=== PATIENT | female | born 1960 | race African-American/Black ===

== ENCOUNTER 2016-06-03 15:31 | Emergency (ER) | payer OTHER ==
[~2016-06-03 15:31] MED LIST: ALLOPURINOL300 MG PO; ATENOLOL25 MG PO; CITALOPRAM HYDR20 MG PO; COLCRYS0.6 MG PO; IRON325 MG PO; LASIX40 MG PO; NEURONTIN100 MG PO; NEURONTIN300 MG PO; PERCOCET1 TA1 PO; TRAMADOL HCL50 MG PO; VITAMIN C TR500 M1 PO; VITAMIN D-31000 UNIT PO; XANAX0.5 MG PO
--- NOTE | 2016-06-03 16:43 | DIAGNOSTIC IMAGING REPORT ---
PROCEDURE: XR CHEST 2 VIEW INDICATION: SHORTNESS OF BREATH, initial encounter TECHNIQUE: PA and lateral view. COMPARISON: Chest x-ray 10/22/2015 FINDINGS: Borderline cardiomegaly with pulmonary vascular congestion and increased interstitial markings suggestive of CHF. Mild left basilar atelectasis. Bones are unremarkable. . IMPRESSION: 1. Findings suggestive of mild CHF 2. Mild left basilar atelectasis
--- NOTE | 2016-06-03 17:03 | ED CLINICAL REPORT ---
Clinical Report - Physicians/Mid Levels [facility] [address] [place] [address] 06/03/2016 15:31 Patient: CAROLINA HAWKINS Time Seen: 1600; initial patient contact, initial documentation, patient care assumed. Arrived- By private vehicle. Historian- patient and furniture stainer. HISTORY OF PRESENT ILLNESS Chief Complaint: BLOOD PRESSURE ELEVATED. PRESCRIPTION REFILL REQUEST. This started years ago and is still present. (pt c/o B low back spasms and pain, states she has had back issues for years, but the spasms are new, denies any new injury/trauma, c/o bp running high, c/o needed refill of inhaler). Similar symptoms previously: Chronically, as bad. Recent medical care: The patient was seen recently in a clinic. ( pt says she has many things wrong with her and went to clinic because she needs new pcp, but when clinic checked her bp and saw it was that high, they referred her to ER). REVIEW OF SYSTEMS No fever, cough, chest pain, abdominal pain or vomiting. No diarrhea or difficulty with urination. She has had mild difficulty breathing . The patient has also had wheezing and back pain. All systems otherwise negative, except as recorded above. PAST HISTORY See nurses notes. PROBLEMS: Abdominal Pain. Weakness. Congestive Heart Failure. Dyspnea. Anemia. HTN. Panic disorder. TB treated. DVT. Pneumonia. --15:45 Oniel Vicente, R.N. ADDITIONAL SURGERIES: Carpal Tunnel Surgery. . Hysterectomy. --15:45 Oniel Vicente, R.N. SOCIAL HISTORY Light tobacco smoker. Occasional alcohol use. History of occasional drug use: marijuana. No recent travel. Is a local resident. FAMILY HISTORY Negative. ADDITIONAL NOTES The nursing notes have been reviewed with agreement regarding the chief complaint, HPI, ROS, PMH and patient medications and allergies. PHYSICAL EXAM Vital Signs: 06/03/2016 15:42 BP: 188/79. HR: 70. RR: 20. O2 saturation: 100%. Temp: 97.5 F. Have been reviewed as abnormal and appear to be correct. Hypertensive. Heart rate normal. Respiratory rate normal. Temperature normal. Oxygen saturation normal. Appearance: Alert. No acute distress. Eyes: Pupils equal, round and reactive to light. Eyes normal inspection. Neck: Normal inspection. Neck supple. CVS: Normal heart rate and rhythm. Heart sounds normal. Pulses normal. Respiratory: No respiratory distress. Breath sounds normal. Chest nontender. Abdomen: No visible injury. Soft and nontender. Back: Normal inspection. Skin: Skin warm and dry. Normal skin color. No rash. Normal skin turgor. Extremities: Extremities exhibit normal ROM. No lower extremity edema. Neuro: Oriented X 3. No motor deficit. No sensory deficit. LABS, X-RAYS, AND EKG Chest X-ray: Normal Chest X-Ray. (IMPRESSION: 1. Findings suggestive of mild CHF 2. Mild left basilar atelectasis Electronically Final signed by:Dave Grajeda MD 06/03/2016 4:42:39 PM). The X-rays were interpreted by the radiologist and contemporaneously by me. PROGRESS AND PROCEDURES Course of Care: 16:07 06/03/16. pt has tony for recommendations to limit any radiation and imaging, refer pt to pcp for chronic conditions, frequent er visits #9 and narcs, rx 05/01 #60 oxycodone, 05/12 for #105 tramadol and #60 xanax and 05/26 for #15 hydrocodone see report for full details 16:15 06/03/16. er records reviewed and pt maxed out on controlled substances, has hit the 3/12months. Blood pressure: 17:03 165/78. Patient counseled in person regarding the patient's stable condition, test results and diagnosis. 16:59. Differential Diagnosis: I considered Musculo-skeletal strain, contusion, disk protrusion, vertebral fracture, facet syndrome, sacroiliac joint strain, sciatica, osteoarthritis, lumbar spondylosis, spinal stenosis, ankylosing spondylitis, sacroiliac joint inflammation, pyelonephritis and pneumonia as a possible cause of back pain in this patient. This is a partial list of diagnoses considered. Other possible considerations: substance abuse, medication refill. Above considerations are based on history, physical exam, laboratory data and X-Ray data. Differential diagnosis was discussed with patient. Disposition: Discharged home in good and improved condition (17:03). Condition: good and stable. CLINICAL IMPRESSION Medication refill. Chronic nontraumatic lumbar back pain. Uncontrolled essential hypertension. INSTRUCTIONS (htn). Warnings: GENERAL WARNINGS: Return or contact your physician immediately if your condition worsens or changes unexpectedly, if not improving as expected, or if other problems arise. Specifically return if problem worsens. Prescription Medications: Naprosyn 500 mg tablets: take 1 orally every 12 hours as needed for pain. Dispense twenty (20). No refills. Substitution is permissible. Albuterol HFA oral inhaler: inhale 1 to 2 puffs every four to six hours as needed for difficulty breathing. Dispense one (1) unit. No refills. Follow-up: Follow up with your doctor in about three days even if well. Call for an appointment. Summary of care provided to patient. Screening today revealed the patient's blood pressure to be in the hypertensive range. The patient should follow up with a primary care provider for blood pressure management. Understanding of the discharge instructions verbalized by patient. (Electronically signed by Isis Del Angel A.R.N.P. 06/03/2016 19:45)
--- NOTE | 2016-06-03 17:03 | ED NURSING NOTES ---
Clinical Report - Nurses [facility] [address] [place] [address] 06/03/2016 15:31 Patient: CAROLINA HAWKINS TRIAGE Triage time 15:42 Jun 03 2016. Acuity: LEVEL 3. --15:48 Oniel Vicente R.N. 15:42 06/03/16. BP: 188/79. HR: 70. RR: 20. O2 saturation: 100%. Temp: 97.5 F. Pain level now 12/03. --15:48 Oniel Vicente R.N. Chief Complaint: (back pain). --17:25 Oniel Vicente R.N. Weight: 90.7 kg stated. Height/Length: 59 inches Per Patient. BMI: 40.4. --15:47 Oniel Vicente R.N. Medications ALPRAZolam Oral 0.5-1mg bid , as needed. Atenolol Oral 25 mg, daily. Citalopram Hydrobromide Oral (Tablet 20 mg) 1 tablet, dday. Colchicine Oral 0.6 mg, 2x a day. --15:44 Oniel Vicente R.N. Furosemide Oral 40 mg, daily. Gabapentin Oral 300 mg, 3x a day. Oxycodone-Acetaminophen Oral 7.5/325 mg, 3x a day as needed. Pantoprazole Sodium Oral. Tramadol HCL Oral 50 mg, 3x a day as needed. Vit C 500 mg BID. Vit D3 5,000 units daily. --15:44 Oniel Vicente R.N. Allergies Erythromycin. Definite Moderate(nausea, vomiting) Latex. Definite Moderate(hives) --15:44 Oniel Vicente R.N. History Arrived by private vehicle. ( Pt reports back spasm increasing in pain today, increased swelling in lower extremities and SOB with exertion pt reports she is out of ventolin). SOCIAL HX: Light tobacco smoker. Alcohol use; consumes beer occasionally. History of drug use: marijuana. --15:48 Oniel Vicente R.N. PROBLEMS: Abdominal Pain. Weakness. Congestive Heart Failure. Dyspnea. Anemia. HTN. Panic disorder. TB treated. DVT. Pneumonia. --15:45 Oniel Vicente R.N. ADDITIONAL SURGERIES: Carpal Tunnel Surgery. . Hysterectomy. --15:45 Oniel Vicente R.N. Interventions ID band on patient. To treatment room. --15:48 Oniel Vicente R.N. PHYSICAL ASSESSMENT GENERAL / NEURO / PSYCH: Alert. Oriented X 4. Appears anxious. HEENT: Pupils equal, round and reactive to light. No facial asymmetry noted. Mucous membranes are pink. RESPIRATORY: Mild respiratory distress. Wheezes in the right lung base, mid-lung and upper lung and left lung base. CVS: Capillary refill less than 2 seconds. Pulses within normal limits. GI / : Abdomen soft. SKIN: Skin is warm and dry. ( edema bilat lower extremities non-pitting). --15:52 Oniel Vicente R.N. NURSING PROGRESS NOTES Pulse oximeter placed on patient. Patient gowned. Two patient identifiers checked. Side rails up x 1. Bed placed in lowest position. Brakes of bed on. Patient ready for evaluation- chart flagged and ED physician notified. --15:54 Oniel Vicente R.N. 15:53 06/03/16. BP: 188/79. HR: 72. RR: 18. O2 saturation: 100%. Pain level now 8/10. --15:54 Oniel Vicente R.N. ( Pt ambulated to the bathroom steady on her feet). --16:18 Oniel Vicente R.N. 17:02 06/03/16. BP: 175/68. --17:04 Oniel Vicente R.N. 15:50 06/03/2016 One (1) unsuccessful IV access attempt including the left antecubital space. Applied bandaid. --17:06 Katty Mitchell R.N. 17:10 06/03/2016 Toradol (Ketorolac Tromethamine) IM 60 mg given. Given in the right anterior lateral thigh. Allergies verified and confirmed 5 rights. --17:10 Oniel Vicente R.N. DISPOSITION / DISCHARGE Condition at departure: improved. Discharge instructions provided and reviewed with the patient. Reviewed medication(s) information. Patient and chin strap maker verbalized understanding. Written instructions provided in [place]. The patient was discharged by the nurse practitioner. She was discharged home and accompanied by chin strap maker. She left the Emergency Department ambulatory and via private vehicle. Director Of Video Analytics driving. --17:11 Oniel Vicente R.N. 17:10 06/03/16. BP: 151/75. HR: 82. RR: 18. O2 saturation: 100%. Temp: 98.0 F. Pain level now 08/03. --17:11 Oniel Vicente R.N. Departure time: 1716. --17:24 Oniel Vicente R.N. Locked/Released at 06/03/2016 18:45 by Oniel Vicente R.N.
--- NOTE | 2016-06-03 17:03 | ED ORDER SUMMARY ---
..... Patient: CAROLINA HAWKINS OrderSheet [facility] VisitID: [id number] [address] [place] [address] 55y, F Registration Date/Time: 06/03/2016 ORDER SHEET Weight: 90.7 kg (stated) Allergies: Erythromycin, Latex GENERAL ORDERS: Chest 2V Urgent (16:06 06/03/2016 HBivens A.R.N.P.) (Ack 16:07 [facility]) (16:35 [facility]) UA-Culture if indicated Urgent (16:06 06/03/2016 HBivens A.R.N.P.) (Ack 16:07 [facility]) MEDICATION ORDERS: Toradol IM 60 mg (NOW) (17:02 06/03/2016 HBivens A.R.N.P.) (17:10 Rachael R.N.) IV FLUIDS: ORDER SHEET NOTES: [Electronically signed by Oniel Vicente R.N. (18:45 06/03/2016)] [Electronically signed by sIis Del AngelR.N.P. (19:45 06/03/2016)] [Electronically locked/signed by Oniel Vicente R.N. (18:45 06/03/2016)]
--- NOTE | 2016-06-03 17:03 | ED ORDER SUMMARY ---
..... Patient: CAROLINA HAWKINS OrderSheet [facility] VisitID: [id number] [address] [place] [address] 55y, F Registration Date/Time: 06/03/2016 ORDER SHEET Weight: 90.7 kg (stated) Allergies: Erythromycin, Latex GENERAL ORDERS: Chest 2V Urgent (16:06 06/03/2016 HBivens A.R.N.P.) (Ack 16:07 [facility]) (16:35 [facility]) UA-Culture if indicated Urgent (16:06 06/03/2016 HBivens A.R.N.P.) (Ack 16:07 [facility]) MEDICATION ORDERS: Toradol IM 60 mg (NOW) (17:02 06/03/2016 HBivens A.R.N.P.) (17:10 Rachael R.N.) IV FLUIDS: ORDER SHEET NOTES: [Electronically signed by Oniel Vicente R.N. (18:45 06/03/2016)] [Electronically signed by Isis Del AngelR.N.P. (19:45 06/03/2016)] [Electronically locked/signed by Oniel Vicente R.N. (18:45 06/03/2016)]
--- NOTE | 2016-06-03 17:03 | ED NURSING NOTES ---
Clinical Report - Nurses [facility] [address] [place] [address] 06/03/2016 15:31 Patient: CAROLINA HAWKINS TRIAGE Triage time 15:42 Jun 03 2016. Acuity: LEVEL 3. --15:48 Oniel Vicente R.N. 15:42 06/03/16. BP: 188/79. HR: 70. RR: 20. O2 saturation: 100%. Temp: 97.5 F. Pain level now 12/03. --15:48 Oniel Vicente R.N. Chief Complaint: (back pain). --17:25 Oniel Vicente R.N. Weight: 90.7 kg stated. Height/Length: 59 inches Per Patient. BMI: 40.4. --15:47 Oniel Vicente R.N. Medications ALPRAZolam Oral 0.5-1mg bid , as needed. Atenolol Oral 25 mg, daily. Citalopram Hydrobromide Oral (Tablet 20 mg) 1 tablet, dday. Colchicine Oral 0.6 mg, 2x a day. --15:44 Oniel Vicente R.N. Furosemide Oral 40 mg, daily. Gabapentin Oral 300 mg, 3x a day. Oxycodone-Acetaminophen Oral 7.5/325 mg, 3x a day as needed. Pantoprazole Sodium Oral. Tramadol HCL Oral 50 mg, 3x a day as needed. Vit C 500 mg BID. Vit D3 5,000 units daily. --15:44 Oniel Vicente R.N. Allergies Erythromycin. Definite Moderate(nausea, vomiting) Latex. Definite Moderate(hives) --15:44 Oniel Vicente R.N. History Arrived by private vehicle. ( Pt reports back spasm increasing in pain today, increased swelling in lower extremities and SOB with exertion pt reports she is out of ventolin). SOCIAL HX: Light tobacco smoker. Alcohol use; consumes beer occasionally. History of drug use: marijuana. --15:48 Oniel Vicente R.N. PROBLEMS: Abdominal Pain. Weakness. Congestive Heart Failure. Dyspnea. Anemia. HTN. Panic disorder. TB treated. DVT. Pneumonia. --15:45 Oniel Vicente R.N. ADDITIONAL SURGERIES: Carpal Tunnel Surgery. . Hysterectomy. --15:45 Oniel Vicente R.N. Interventions ID band on patient. To treatment room. --15:48 Oniel Vicente R.N. PHYSICAL ASSESSMENT GENERAL / NEURO / PSYCH: Alert. Oriented X 4. Appears anxious. HEENT: Pupils equal, round and reactive to light. No facial asymmetry noted. Mucous membranes are pink. RESPIRATORY: Mild respiratory distress. Wheezes in the right lung base, mid-lung and upper lung and left lung base. CVS: Capillary refill less than 2 seconds. Pulses within normal limits. GI / : Abdomen soft. SKIN: Skin is warm and dry. ( edema bilat lower extremities non-pitting). --15:52 Oniel Vicente R.N. NURSING PROGRESS NOTES Pulse oximeter placed on patient. Patient gowned. Two patient identifiers checked. Side rails up x 1. Bed placed in lowest position. Brakes of bed on. Patient ready for evaluation- chart flagged and ED physician notified. --15:54 Oniel Vicente R.N. 15:53 06/03/16. BP: 188/79. HR: 72. RR: 18. O2 saturation: 100%. Pain level now 8/10. --15:54 Oniel Vicente R.N. ( Pt ambulated to the bathroom steady on her feet). --16:18 Oniel Vicente R.N. 17:02 06/03/16. BP: 175/68. --17:04 Oniel Vicente R.N. 15:50 06/03/2016 One (1) unsuccessful IV access attempt including the left antecubital space. Applied bandaid. --17:06 Katty Mitchell R.N. 17:10 06/03/2016 Toradol (Ketorolac Tromethamine) IM 60 mg given. Given in the right anterior lateral thigh. Allergies verified and confirmed 5 rights. --17:10 Oniel Vicente R.N. DISPOSITION / DISCHARGE Condition at departure: improved. Discharge instructions provided and reviewed with the patient. Reviewed medication(s) information. Patient and computer forwarding system markup clerk verbalized understanding. Written instructions provided in [place]. The patient was discharged by the nurse practitioner. She was discharged home and accompanied by computer forwarding system markup clerk. She left the Emergency Department ambulatory and via private vehicle. Filling Separator driving. --17:11 Oniel Vicente R.N. 17:10 06/03/16. BP: 151/75. HR: 82. RR: 18. O2 saturation: 100%. Temp: 98.0 F. Pain level now 08/03. --17:11 Oniel Vicente R.N. Departure time: 1716. --17:24 Oniel Vicente R.N. Locked/Released at 06/03/2016 18:45 by Oniel Vicente R.N.
--- NOTE | 2016-06-03 19:45 | ED MAR SUMMARY ---
..... Medication Administration Record [facility] [address] [place] [address] Patient: CAROLINA HAWKINS Visit ID: [id number] 55y, F Weight: 90.7 kg Height/Length: 59 in BMI: 40.4 ALLERGIES: Erythromycin, Latex Given 17:10 06/03/2016 Oniel Vicente R.N. Medication Administered: TORADOL [IM] (KETOROLAC TROMETHAMINE), Dose: 60 mg IM. Medication Ordered: Toradol IM 60 mg (NOW).
--- NOTE | 2016-06-03 19:45 | ED DISCHARGE INSTRUCTIONS ---
Patient: CAROLINA HAWKINS General Instructions [facility] VisitID: [id number] [place] [address] 55y, F Registration Date/Time: 06/03/2016 Medication refill. Chronic nontraumatic lumbar back pain. Uncontrolled essential hypertension. INSTRUCTIONS (htn). Warnings: GENERAL WARNINGS: Return or contact your physician immediately if your condition worsens or changes unexpectedly, if not improving as expected, or if other problems arise. Specifically return if problem worsens. Prescription Medications: Naprosyn 500 mg tablets: take 1 orally every 12 hours as needed for pain. Dispense twenty (20). No refills. Substitution is permissible. Albuterol HFA oral inhaler: inhale 1 to 2 puffs every four to six hours as needed for difficulty breathing. Dispense one (1) unit. No refills. Follow-up: Follow up with your doctor in about three days even if well. Call for an appointment. Summary of care provided to patient. Screening today revealed the patient's blood pressure to be in the hypertensive range. The patient should follow up with a primary care provider for blood pressure management. Understanding of the discharge instructions verbalized by patient. ADDITIONAL INFORMATION Back Pain [Acute Or Chronic] Back pain is usually caused by an injury to the muscles or ligaments of the spine. Sometimes the disks that separate each bone in the spine may bulge and cause pain by pressing on a nearby nerve. Back pain may also appear after a sudden twisting/bending force (such as in a car accident), after a simple awkward movement, or lifting something heavy with poor body positioning. In either case, muscle spasm is often present and adds to the pain. Acute back pain usually gets better in one to two weeks. Back pain related to disk disease, arthritis in the spinal joints or spinal stenosis (narrowing of the spinal canal) can become chronic and last for months or years. Unless you had a physical injury (for example, a car accident or fall) X-rays are usually not ordered for the initial evaluation of back pain. If pain continues and does not respond to medical treatment, x-rays and other tests may be performed at a later time. Home Care: You may need to stay in bed the first few days. But, as soon as possible, begin sitting or walking to avoid problems with prolonged bed rest (muscle weakness, worsening back stiffness and pain, blood clots in the legs). When in bed, try to find a position of comfort. A firm mattress is best. Try lying flat on your back with pillows under your knees. You can also try lying on your side with your knees bent up towards your chest and a pillow between your knees. Avoid prolonged sitting. This puts more stress on the lower back than standing or walking. During the first two days after injury, apply an ICE PACK to the painful area for 20 minutes every 2-4 hours. This will reduce swelling and pain. HEAT (hot shower, hot bath or heating pad) works well for muscle spasm. You can start with ice, then switch to heat after two days. Some patients feel best alternating ice and heat treatments. Use the one method that feels the best to you. You may use acetaminophen (Tylenol) or ibuprofen (Motrin, Advil) to control pain, unless another pain medicine was prescribed. [NOTE: If you have chronic liver or kidney disease or ever had a stomach ulcer or GI bleeding, talk with your doctor before using these medicines.] Be aware of safe lifting methods and do not lift anything over 15 pounds until all the pain is gone. Follow Up with your doctor or this facility if your symptoms do not start to improve after one week. Physical therapy may be needed. [NOTE: If X-rays were taken, they will be reviewed by a radiologist. You will be notified of any new findings that may affect your care.] Get Prompt Medical Attention if any of the following occur: Pain becomes worse or spreads to your legs Weakness or numbness in one or both legs Loss of bowel or bladder control Numbness in the groin or genital area High Blood Pressure --Established High Blood Pressure (Hypertension) is a chronic disease. The cause is unknown in most cases. It can usually be controlled with lifestyle changes and/or medicines. Symptoms of high blood pressure may include headache, dizziness, visual changes, chest pain and shortness of breath. Sometimes it causes no symptoms at all. However, even if there are no symptoms, untreated high blood pressure increases the risk of heart attack, also known as acute myocardial infarction, or AMI, and stroke. It is a serious health risk and should not be ignored. A normal blood pressure is 120/80 or less. The first (top) number is the "systolic" pressure. The second (bottom) number is the "diastolic" pressure. Hypertension exists when either the top number is 140 or higher, OR the bottom number is 90 or higher on repeated measurements. Home Care: All patients with high blood pressure should do the following to lower their pressure. If you are on medicines, then these methods may reduce or eliminate your need for medicines in the future. Begin a weight loss program if you are overweight. Reduce your salt intake. Avoid high salt foods (olives, pickles, smoked meats, salted potato chips, etc.). Do not add salt to your food at the table. Use only small amounts of salt when cooking. Begin an exercise program. Discuss with your doctor what type of exercise program would be best for you. It doesn't have to be difficult. Even brisk walking for 20 minutes three times a week is a good form of exercise. Avoid medicines which contain heart stimulants. This includes many cold and sinus decongestant pills and sprays as well as diet pills. Check the warnings about hypertension on the label. Stimulants such as amphetamine or cocaine could be lethal for someone with hypertension. Never take these. Limit your caffeine intake or switch to caffeine-free products. Stop smoking. If you are a long-time smoker, this can be hard. Enroll in a stop-smoking program to improve your chance of success. Learning how to handle stress better is an important part of any program to lower blood pressure. Learn about relaxation methods such as meditation, yoga or biofeedback. If medicines were prescribed, take them exactly as directed. Missing doses may cause your blood pressure get out of control. Consider buying an automatic blood pressure machine (available at most pharmacies). Use this to monitor your blood pressure at home and report the results to your doctor. Follow Up: Regular visits to your own physician for blood pressure checks and medicine adjustment is an important part of your care. Make a follow-up appointment as directed by our staff. Get Prompt Medical Attention if any of the following occur: Chest pain or shortness of breath Severe headache Throbbing or rushing sound in the ears Nosebleed Sudden severe abdominal pain Extreme drowsiness, confusion or fainting Dizziness or vertigo (dizziness with spinning sensation) Weakness of an arm or leg or one side of the face Difficulty with speech or vision Naproxen Sodium Oral tablet What is this medicine? NAPROXEN (na PROX en) is a non-steroidal anti-inflammatory drug (NSAID). It is used to reduce swelling and to treat pain. This medicine may be used for dental pain, headache, or painful monthly periods. It is also used for painful joint and muscular problems such as arthritis, tendinitis, bursitis, and gout. How should I use this medicine? Take this medicine by mouth with a glass of water. Follow the directions on the prescription label. Take it with food if your stomach gets upset. Try to not lie down for at least 10 minutes after you take it. Take your medicine at regular intervals. Do not take your medicine more often than directed. Long-term, continuous use may increase the risk of heart attack or stroke. A special MedGuide will be given to you by the pharmacist with each prescription and refill. Be sure to read this information carefully each time. Talk to your engineer fishing vessel regarding the use of this medicine in children. Special care may be needed. What side effects may I notice from receiving this medicine? Side effects that you should report to your doctor or health home care attendant as soon as possible: black or bloody stools, blood in the urine or vomit blurred vision chest pain difficulty breathing or wheezing nausea or vomiting severe stomach pain skin rash, skin redness, blistering or peeling skin, hives, or itching slurred speech or weakness on one side of the body swelling of eyelids, throat, lips unexplained weight gain or swelling unusually weak or tired yellowing of eyes or skin Side effects that usually do not require medical attention (report to your doctor or health home care attendant if they continue or are bothersome): constipation headache heartburn What may interact with this medicine? alcohol aspirin cidofovir diuretics lithium methotrexate other drugs for inflammation like ketorolac or prednisone pemetrexed probenecid warfarin What if I miss a dose? If you miss a dose, take it as soon as you can. If it is almost time for your next dose, take only that dose. Do not take double or extra doses. Where should I keep my medicine? Keep out of the reach of children. Store at room temperature between 15 and 30 degrees C (59 and 86 degrees F). Keep container tightly closed. Throw away any unused medicine after the expiration date. What should I tell my health care provider before I take this medicine? They need to know if you have any of these conditions: asthma cigarette smoker drink more than 3 alcohol containing drinks a day heart disease or circulation problems such as heart failure or leg edema (fluid retention) high blood pressure kidney disease liver disease stomach bleeding or ulcers an unusual or allergic reaction to naproxen, aspirin, other NSAIDs, other medicines, foods, dyes, or preservatives or trying to get breast-feeding What should I watch for while using this medicine? Tell your doctor or health home care attendant if your pain does not get better. Talk to your doctor before taking another medicine for pain. Do not treat yourself. This medicine does not prevent heart attack or stroke. In fact, this medicine may increase the chance of a heart attack or stroke. The chance may increase with longer use of this medicine and in people who have heart disease. If you take aspirin to prevent heart attack or stroke, talk with your doctor or health home care attendant. Do not take other medicines that contain aspirin, ibuprofen, or naproxen with this medicine. Side effects such as stomach upset, nausea, or ulcers may be more likely to occur. Many medicines available without a prescription should not be taken with this medicine. This medicine can cause ulcers and bleeding in the stomach and intestines at any time during treatment. Do not smoke cigarettes or drink alcohol. These increase irritation to your stomach and can make it more susceptible to damage from this medicine. Ulcers and bleeding can happen without warning symptoms and can cause . You may get drowsy or dizzy. Do not drive, use machinery, or do anything that needs mental alertness until you know how this medicine affects you. Do not stand or sit up quickly, especially if you are an older patient. This reduces the risk of dizzy or fainting spells. This medicine can cause you to bleed more easily. Try to avoid damage to your teeth and gums when you brush or floss your teeth. Albuterol Sulfate Pressurized inhalation, suspension What is this medicine? ALBUTEROL (al BYOO ter ole) is a bronchodilator. It helps open up the airways in your lungs to make it easier to breathe. This medicine is used to treat and to prevent bronchospasm. How should I use this medicine? This medicine is for inhalation through the mouth. Follow the directions on your prescription label. Take your medicine at regular intervals. Do not use more often than directed. Make sure that you are using your inhaler correctly. Ask you doctor or health care provider if you have any questions. Talk to your engineer fishing vessel regarding the use of this medicine in children. Special care may be needed. What side effects may I notice from receiving this medicine? Side effects that you should report to your doctor or health home care attendant as soon as possible: allergic reactions like skin rash, itching or hives, swelling of the face, lips, or tongue breathing problems chest pain feeling faint or lightheaded, falls high blood pressure irregular heartbeat fever muscle cramps or weakness pain, tingling, numbness in the hands or feet vomiting Side effects that usually do not require medical attention (report to your doctor or health home care attendant if they continue or are bothersome): cough difficulty sleeping headache nervousness or trembling stomach upset stuffy or runny nose throat irritation unusual taste What may interact with this medicine? anti-infectives like chloroquine and pentamidine caffeine cisapride diuretics medicines for colds medicines for depression or for emotional or psychotic conditions medicines for weight loss including some herbal products methadone some antibiotics like clarithromycin, erythromycin, levofloxacin, and linezolid some heart medicines steroid hormones like dexamethasone, cortisone, hydrocortisone theophylline thyroid hormones What if I miss a dose? If you miss a dose, use it as soon as you can. If it is almost time for your next dose, use only that dose. Do not use double or extra doses. Where should I keep my medicine? Keep out of the reach of children. Store at room temperature between 15 and 30 degrees C (59 and 86 degrees F). The contents are under pressure and may burst when exposed to heat or flame. Do not freeze. This medicine does not work as well if it is too cold. Throw away any unused medicine after the expiration date. Inhalers need to be thrown away after the labeled number of puffs have been used or by the expiration date; whichever comes first. Ventolin HFA should be thrown away 12 months after removing from foil pouch. Check the instructions that come with your medicine. What should I tell my health care provider before I take this medicine? They need to know if you have any of the following conditions: diabetes heart disease or irregular heartbeat high blood pressure pheochromocytoma seizures thyroid disease an unusual or allergic reaction to albuterol, levalbuterol, sulfites, other medicines, foods, dyes, or preservatives or trying to get breast-feeding What should I watch for while using this medicine? Tell your doctor or health home care attendant if your symptoms do not improve. Do not use extra albuterol. If your asthma or bronchitis gets worse while you are using this medicine, call your doctor right away. If your mouth gets dry try chewing sugarless gum or sucking hard candy. Drink water as directed. You have been given the following additional information: Back Pain (Acute Or Chronic) Hypertension, Established Naproxen Sodium Oral tablet Albuterol Sulfate Pressurized inhalation, suspension (Electronically signed by Isis Del Angel A.R.N.P. 06/03/2016 19:45)
--- NOTE | 2016-06-03 19:45 | ED MED RECONCILIATION SUMMARY ---
Patient: CAROLINA HAWIKNS Medication Reconciliation Report [facility] VisitID: [id number] [address] [place] [address] 55y, F Registration Date/Time: 06/03/2016 Weight: 90.7 kg Height/Length: 59 in. BMI: 40.4 ALLERGIES: Erythromycin, Latex The patient's Home Medications are listed below: THE FOLLOWING MEDICATIONS NEED TO BE RECONCILED: ALPRAZolam Oral 0.5-1mg bid Atenolol Oral 25 mg, daily Citalopram Hydrobromide Oral (20 mg) 1 tablet, dday Colchicine Oral 0.6 mg, 2x a day Furosemide Oral 40 mg, daily Gabapentin Oral 300 mg, 3x a day Oxycodone-Acetaminophen Oral 7.5/325 mg, 3x a day Pantoprazole Sodium Oral Tramadol HCL Oral 50 mg, 3x a day Vit C 500 mg BID Vit D3 5,000 units daily The source(s) of the original Home Medication information: Not obtained. The following Medications were given to the patient in the Emergency Department: Toradol [IM] IM 60 mg, administered: 06/03/2016 5:10:00 PM The following Medications were prescribed to the patient: Naprosyn 500 mg tablets: take 1 orally every 12 hours as needed for pain. Dispense twenty (20). No refills. Substitution is permissible. -- Isis Del Angel A.R.N.P. Albuterol HFA oral inhaler: inhale 1 to 2 puffs every four to six hours as needed for difficulty breathing. Dispense one (1) unit. No refills. -- Isis Del Angel A.R.N.P.
--- NOTE | 2016-06-03 19:45 | ED MED RECONCILIATION SUMMARY ---
Patient: CAROLINA HAWKINS Medication Reconciliation Report [facility] VisitID: [id number] [address] [place] [address] 55y, F Registration Date/Time: 06/03/2016 Weight: 90.7 kg Height/Length: 59 in. BMI: 40.4 ALLERGIES: Erythromycin, Latex The patient's Home Medications are listed below: THE FOLLOWING MEDICATIONS NEED TO BE RECONCILED: ALPRAZolam Oral 0.5-1mg bid Atenolol Oral 25 mg, daily Citalopram Hydrobromide Oral (20 mg) 1 tablet, dday Colchicine Oral 0.6 mg, 2x a day Furosemide Oral 40 mg, daily Gabapentin Oral 300 mg, 3x a day Oxycodone-Acetaminophen Oral 7.5/325 mg, 3x a day Pantoprazole Sodium Oral Tramadol HCL Oral 50 mg, 3x a day Vit C 500 mg BID Vit D3 5,000 units daily The source(s) of the original Home Medication information: Not obtained. The following Medications were given to the patient in the Emergency Department: Toradol [IM] IM 60 mg, administered: 06/03/2016 5:10:00 PM The following Medications were prescribed to the patient: Naprosyn 500 mg tablets: take 1 orally every 12 hours as needed for pain. Dispense twenty (20). No refills. Substitution is permissible. -- Isis Del Angel A.R.N.P. Albuterol HFA oral inhaler: inhale 1 to 2 puffs every four to six hours as needed for difficulty breathing. Dispense one (1) unit. No refills. -- Isis Del Angel A.R.N.P.
--- NOTE | 2016-06-03 19:45 | ED MAR SUMMARY ---
..... Medication Administration Record [facility] [address] [place] [address] Patient: CAROLINA HAWKINS Visit ID: [id number] 55y, F Weight: 90.7 kg Height/Length: 59 in BMI: 40.4 ALLERGIES: Erythromycin, Latex Given 17:10 06/03/2016 Oniel Vicente R.N. Medication Administered: TORADOL [IM] (KETOROLAC TROMETHAMINE), Dose: 60 mg IM. Medication Ordered: Toradol IM 60 mg (NOW).
== END 2016-06-03 17:16 | disposition home or self-care (01) ==
LOC: ED SRH 15:31
DX: G89.29 Other chronic pain (principal); M54.5 Low back pain; I10 Essential (primary) hypertension; F17.210 Nicotine dependence, cigarettes, uncomplicated; Z76.0 Encounter for issue of repeat prescription; I50.9 Heart failure, unspecified; Z79.891 Long term (current) use of opiate analgesic; Z79.899 Other long term (current) drug therapy; Z88.5 Allergy status to narcotic agent; Z91.040 Latex allergy status
CPT/HCPCS: 90004

== ENCOUNTER 2016-10-07 17:45 | Outpatient (CLI) | payer OTHER ==
--- NOTE | 2016-10-07 18:42 | DIAGNOSTIC IMAGING REPORT ---
PROCEDURE: XR LUMBAR SPINE 2 OR 3 VIEWS INDICATION: Increasing low back pain. TECHNIQUE: Three upright views. COMPARISON: None. FINDINGS: There is moderate disc space narrowing at L4-5 L5-S1 with moderate degenerative changes of the lower lumbar facet joints. Osseous structures and disc spaces are otherwise normal. No evidence of an acute process or fracture. Marked calcified atheromatous changes of the abdominal aorta, but no evidence of aneurysm. IMPRESSION: 1. Moderate degenerative changes of the lower lumbar spine. lumbar spine.
== END 2016-10-07 23:00 ==
LOC: XR SRH 17:45
DX: M47.816 Spondylosis without myelopathy or radiculopathy, lumbar region (principal)